=== PATIENT | female | born 1960 | race Caucasian/White ===

== ENCOUNTER 2024-10-29 17:23 | Emergency (ER) | payer MEDICARE, OTHER ==
[~2024-10-29] VITALS: Ht 157.5 cm; Wt 127.0 kg
[~2024-10-29 17:23] MED LIST: AMLODIPINE BESY10 MG PO; AMLODIPINE BESYL5 MG PO; BACTRIM DS TAB1 EACH PO; CEFTIN500 MG PO; FAMOTIDINE20 MG PO; FLOMAX0.4 MG PO; IBUPROFEN400 MG PO; LASIX20 MG PO; METOCLOPRAMIDE10 MG PO; METOPROLOL TART25 MG PO; NORCO 5-325 TA1 EACH PO; NORVASC10 MG PO; SOMA350 MG PO; TYLENOL WITH C1 EACH PO; ULTRAM50 MG PO
[2024-10-29 19:06] VITALS: PULSE 78; RESP 16; TEMP 97.7
[2024-10-29 19:55] VITALS: BP 133/82; PULSE 59; RESP 17; TEMP 98.1; O2SAT 100
== END 2024-10-29 20:01 | disposition home or self-care (01) ==
LOC: ER 17:32
DX: M79.645 Pain in left finger(s) (principal); S56.116A Strain of flexor muscle, fascia and tendon of left ring finger at forearm level, initial encounter; W18.39XA Other fall on same level, initial encounter; Y92.89 Other specified places as the place of occurrence of the external cause
CPT/HCPCS: 99283

== ENCOUNTER 2024-12-01 16:45 | Emergency (ER) | payer MEDICARE, OTHER ==
[~2024-12-01] VITALS: Ht 157.5 cm; Wt 127.5 kg
[2024-12-01 17:45] VITALS: TEMP 98.6
[2024-12-01] MEDS: KETOROLAC TROMETHAMINE 60 MG/2 ML VIAL IM STA (17:59)
[2024-12-01] MEDS ORDERED: ULTRAM 50MG50 MG PO (20:27)
[2024-12-01 20:32] VITALS: PULSE 84; RESP 16
[2024-12-01 20:50] VITALS: BP 152/76; O2SAT 100
== END 2024-12-01 20:51 | disposition home or self-care (01) ==
LOC: ER 17:34
DX: M79.605 Pain in left leg (principal); W01.0XXA Fall on same level from slipping, tripping and stumbling without subsequent striking against object, initial encounter; Y93.01 Activity, walking, marching and hiking; Y92.89 Other specified places as the place of occurrence of the external cause; J44.9 Chronic obstructive pulmonary disease, unspecified; M06.9 Rheumatoid arthritis, unspecified; K21.9 Gastro-esophageal reflux disease without esophagitis; M54.9 Dorsalgia, unspecified; G89.29 Other chronic pain
CPT/HCPCS: 73552; 73590; 99283; J1885